=== PATIENT | female | born 1975 | race Caucasian/White ===

== ENCOUNTER 2016-11-07 12:42 | Emergency (ER) | payer OTHER ==
[2016-11-07 12:46] VITALS: TEMP 98; BMI 26.4
--- NOTE | 2016-11-07 13:36 | PDOC ---
History of Present Illness - General Chief Complaint: Vaginal Bleeding Stated Complaint: VAGINAL BLEEDING, 8 WKS Time Seen by Provider: 11/07/16 13:10 History Source: Patient Exam Limitations: No Limitations - History of Present Illness Travel History: No Initial Comments: 11/07/16 13:26 Patient is here with complaints of vaginal bleeding, noted last night some dark red blood on her underwear. Denies any clots, denies any gelatinous drainage but this dark red vaginal drainage has persistent. Has no cramping, nausea vomiting, , no recent gastrointestinal issues, no recent trauma or exercise change. Patient has had 6 pregnancies including this one, 3 live births, and 2 miscarriages 1- February of last year, second one in May of last year. Patient is uncertain as to cause, was never identified causesd of Misscarriage. Denies fever, nausea vomiting diarrhea or constipation. Denies any urology problems Timing/Duration: reports: getting worse Quality: reports: mild Abdominal Pain Onset Location: reports: suprapubic, generalized abdomen Activities at Onset: reports: none Aggravating Factors: improves with: None Alleviating Factors: improves with: None Past History - Travel Traveled outside of the country in the last 30 days: No Close contact w/someone who was outside of country & ill: No - Past Medical History Allergies/Adverse Reactions: Allergies Allergy/AdvReac Type Severity Reaction Status Date / Time No Known Allergies Allergy Verified 11/07/16 12:46 Home Medications: Ambulatory Orders NK [No Known Home Medication] 12/29/15 Asthma: No Cancer: No Cardiac Disorders: No Diabetes: No HTN: No Seizures: No Thyroid Disease: No - Reproductive History (#): 4 Para: 3 Spontaneous : 1 - Psycho/Social/Smoking Cessation Hx Anxiety: No Suicidal Ideation: No Smoking History: Never smoked Have you smoked in the past 12 months: No Information on smoking cessation initiated: No Hx Alcohol Use: No Drug/Substance Use Hx: No Substance Use Type: None Hx Substance Use Treatment: No Review of Systems - Review of Systems Able to Perform ROS?: No Is the patient limited Paraguayan proficient: No Constitutional: Yes: Symptoms Reported, See HPI. No: Fever, Malaise HEENTM: Yes: Symptoms Reported Respiratory: Yes: Symptoms reported, See HPI, Cough ABD/GI: Yes: Symptoms Reported, See HPI, Nausea : No: Symptoms Reported Integumentary: Yes: Symptoms Reported Neurological: Yes: Symptoms reported All Other Systems: Reviewed and Negative *Physical Exam - Vital Signs Last Vital Signs Temp Pulse Resp BP Pulse Ox 98 F 70 18 122/74 98 11/07/16 12:44 11/07/16 12:44 11/07/16 12:44 11/07/16 12:44 11/07/16 12:44 - Physical Exam General Appearance: Yes: Nourished, Appropriately Dressed, Apparent Distress, Mild Distress HEENT: positive: RIVKA, Normal ENT Inspection, TMs Normal, Pharynx Normal Neck: positive: Tender, Supple Respiratory/Chest: positive: Lungs Clear, Normal Breath Sounds Female Pelvic Exam: positive: normal external exam, cervical os closed (by manual exam- dark red blood noted in vault, minimalk amount ), discharge (dark blood ), vaginal bleeding Gastrointestinal/Abdominal: positive: Normal Bowel Sounds, Soft. negative: Distended, Guarding, Rebound, Tenderness Musculoskeletal: positive: Normal Inspection. negative: CVA Tenderness Extremity: positive: Normal Capillary Refill, Normal Inspection, Normal Range of Motion Integumentary: positive: Normal Color, Dry, Warm, Pale Neurologic: positive: patent examiner II-XII NML intact, Fully Oriented, Alert, Normal Mood/ Affect, Normal Response, Motor Strength 5/5 ED Treatment Course - LABORATORY CBC & Chemistry Diagram: 11/07/16 13:20 11/07/16 13:20 Progress Note - Progress Note Progress Note: , with dark vaginal bleeding. Previous miscarriages 2, will obtain labs, and ultrasound Medical Decision Making - Medical Decision Making 11/07/16 16:[address] King and reviewed ultrasound results. His concern was a low beta hCG (9700) and recommends return in 2 days for repeat ultrasound and laboratory testing. Patient updated to all of this plan and reports. States will return here in 2 days for same. Ultrasound was obtained to rule out ectopic as opposed to ovarian torsion . 11/07/16 17:42 *DC/Admit/Observation/Transfer Diagnosis at time of Disposition: Threatened in early - Discharge Dispostion Disposition: HOME Condition at time of disposition: Stable Admit: No - Referrals Referrals: Roberto Bautista MD [Staff Physician] - - Patient Instructions Printed Discharge Instructions: DI for Threatened Additional Instructions: Rest, drink lots of fluids: Teas, water, soups Kaylynn gwendolyn, carbonated beverages for the bubbles May try peppermint teas Avoid heavy , spicy or fatty foods until symptoms have resolved Avoid contact with others until fevers and symptoms resolved Lots of handwashing and good hygiene Tylenol for fever and pain Return to this emergency Department in 2 days for repeat ultrasound to rule out any adnexa fullness or ectopic , and have beta hCG repeated to evaluate for elevation or diminishing. Return immediately to emergency department for nausea, fevers, worsening abdominal pain or worsened bleeding. Followup with private physician / DIRECTOR OF BILLING/OB in one to 2 days to review Return to emergency department for worsened symptoms, fevers, dehydration - Post Discharge Activity Work/School Note: Back to Work
[2016-11-07 13:40] LABS: BASOPHIL 1.1 % (0-2.0); MCHC 34.6 g/dl (32.0-36.0); MEAN CELL VOLUME 92.3 fl (80-96); MEAN PLT VOLUME 7.4 fl (7.5-11.1); PLATELET COUNT 276 K/MM3 (134-434); RDW 12.9 % (11.6-15.6); WHITE BLOOD COUNT 6.2 K/mm3 (4.0-10.0)
[2016-11-07 13:51] LABS: ALBUMIN 3.8 g/dl (3.4-5.0)
[2016-11-07 14:12] LABS: ALK PHOS 82 U/L (45-117); ANION GAP 8 (8-16); BILIRUBIN,TOTAL 0.5 mg/dL (0.2-1.0); CALCIUM 8.8 mg/dL (8.5-10.1); CO2 25 mmol/L (21-32); COCKROFT - GAULT 144.5765; CREATININE 0.5 mg/dL (0.55-1.02); GLUCOSE,RANDOM 124 mg/dL (74-106); SGOT/AST 13 U/L (15-37); SGPT/ALT 20 U/L (12-78); TOT PROT 7.9 g/dl (6.4-8.2)
--- NOTE | 2016-11-07 14:13 | PDOC ---
[id number] 11/07/16 12:44 11/07/16 12:44 11/07/16 12:44 11/07/16 12:44 11/07/16 12:44 ED Treatment Course - LABORATORY CBC & Chemistry Diagram: 11/07/16 13:20 11/07/16 13:20 - ADDITIONAL ORDERS Additional order review: Laboratory Results 11/07/16 13:20 Sodium 139 Potassium 4.0 Chloride 106 BUN 8 Albumin 3.8 - RADIOLOGY Radiology Studies Ordered: Category Date Time Status TRANSVAGINAL US PREG [US] Stat Ultrasound 11/07/16 13:10 Ordered Medical Decision Making - Medical Decision Making 11/07/16 14:12 Patient seen and evaluated with the nurse practitioner. I agree with the overall evaluation, assessment, and management with the following summary of visit: 40-year-old female first trimester vaginal bleeding at suspected 8 weeks gestation. Check labs, hCG, Rh, ultrasound, urinalysis. *DC/Admit/Observation/Transfer Diagnosis at time of Disposition: Threatened in early - Discharge Dispostion Disposition: HOME Condition at time of disposition: Stable - Referrals Referrals: Roberto Bautista MD [Staff Physician] - - Patient Instructions Printed Discharge Instructions: DI for Threatened Additional Instructions: Rest, drink lots of fluids: Teas, water, soups Kaylynn gwendolyn, carbonated beverages for the bubbles May try peppermint teas Avoid heavy , spicy or fatty foods until symptoms have resolved Avoid contact with others until fevers and symptoms resolved Lots of handwashing and good hygiene Tylenol for fever and pain Return to this emergency Department in 2 days for repeat ultrasound to rule out any adnexa fullness or ectopic , and have beta hCG repeated to evaluate for elevation or diminishing. Return immediately to emergency department for nausea, fevers, worsening abdominal pain or worsened bleeding. Followup with private physician / CASINO CASHIER MANAGER/OB in one to 2 days to review Return to emergency department for worsened symptoms, fevers, dehydration - Post Discharge Activity Work/School Note: Back to Work
[2016-11-07 16:47] LABS: URINE APPEARANCE CLEAR; URINE BILIRUBIN NEGATIVE (NEGATIVE); URINE COLOR COLORLESS; URINE GLUCOSE (UA) NEGATIVE (NEGATIVE); URINE KETONE NEGATIVE (NEGATIVE); URINE LEUK ESTERASE NEGATIVE (NEGATIVE); URINE NITRITE NEGATIVE (NEGATIVE); URINE PROTEIN NEGATIVE (NEGATIVE); URINE UROBILINOGEN NEGATIVE E.U./dl (0.2-1.0)
[2016-11-07 16:54] LABS: URINE BLOOD 2+ (NEGATIVE)
[2016-11-07 16:56] LABS: URINE MUCUS RARE; URINE RBC <1 /hpf (0-3); URINE WBC 1 /hpf (3-5)
[2016-11-07 17:14] VITALS: BP 126/70; PULSE 86
== END 2016-11-07 17:16 | disposition home or self-care (01) ==
LOC: JER 12:42
DX: O20.0 Threatened abortion (principal); Z3A.08 8 weeks gestation of pregnancy
CPT/HCPCS: 36415; 76817-TC; 80053; 81003; 81015; 84702; 85025; 86850; 86900; 86901; 99282-25

== ENCOUNTER 2016-11-09 13:01 | Emergency (ER) | payer OTHER ==
[2016-11-09 13:17] VITALS: BP 116/76; PULSE 67; TEMP 98.4; BMI 26.4
--- NOTE | 2016-11-09 13:24 | PDOC ---
History of Present Illness - General Chief Complaint: Revisit, Lab Variance Stated Complaint: REVISIT/ BETA HCG Time Seen by Provider: 11/09/16 13:18 History Source: Patient Exam Limitations: No Limitations - History of Present Illness Initial Comments: 11/09/16 13:19 Patient was seen by myself 2 days ago in the emergency department for a missed AB. Beta hCG numbers were low and patient instructed to come to this emergency department for repeat labs and ultrasound. Today had a large amount of bleeding with some clots noted, went through for to 5 large pads. States much less today but has some small amount of dark bleeding noted. Denies fever, denies any nausea vomiting diarrhea or constipation. Denies any dysuria. 11/09/16 13:26 Severity: mild Associated Symptoms: reports: denies symptoms Past History - Travel Traveled outside of the country in the last 30 days: No Close contact w/someone who was outside of country & ill: No - Past Medical History Allergies/Adverse Reactions: Allergies Allergy/AdvReac Type Severity Reaction Status Date / Time No Known Allergies Allergy Verified 11/07/16 12:46 Home Medications: Ambulatory Orders NK [No Known Home Medication] 12/29/15 Asthma: No Cancer: No Cardiac Disorders: No Diabetes: No HTN: No Seizures: No Thyroid Disease: No Other medical history: denies - Reproductive History (#): 4 Para: 3 Spontaneous : 1 - Psycho/Social/Smoking Cessation Hx Anxiety: No Suicidal Ideation: No Smoking History: Never smoked Have you smoked in the past 12 months: No Information on smoking cessation initiated: No Hx Alcohol Use: No Drug/Substance Use Hx: No Substance Use Type: None Hx Substance Use Treatment: No Review of Systems - Review of Systems Able to Perform ROS?: Yes Is the patient limited Amharic proficient: Yes Constitutional: Yes: See HPI, Fever. No: Symptoms Reported, Malaise HEENTM: No: Symptoms Reported Respiratory: Yes: Symptoms reported, See HPI Cardiac (ROS): No: Symptoms Reported ABD/GI: Yes: Symptoms Reported, Abdominal cramping (mild suprapubic), Other ( has minimal vaginal bleeding today) : Yes: See HPI. No: Symptoms Reported, Burning Musculoskeletal: No: Symptoms Reported Integumentary: Yes: See HPI. No: Symptoms Reported Neurological: No: Symptoms reported All Other Systems: Reviewed and Negative *Physical Exam - Vital Signs Last Vital Signs Temp Pulse Resp BP Pulse Ox 98.4 F 67 18 116/76 100 11/09/16 13:09 11/09/16 13:09 11/09/16 13:09 11/09/16 13:09 11/09/16 13:09 - Physical Exam General Appearance: Yes: Nourished, Appropriately Dressed, Apparent Distress, Mild Distress HEENT: positive: RIVKA, Normal ENT Inspection, TMs Normal, Pharynx Normal Neck: positive: Supple. negative: Tender Respiratory/Chest: positive: Lungs Clear Gastrointestinal/Abdominal: positive: Soft, Other (no rebound or guarding ). negative: Normal Bowel Sounds, Distended, Guarding Extremity: positive: Normal Capillary Refill, Normal Inspection, Normal Range of Motion Integumentary: positive: Normal Color, Warm, Pale Neurologic: positive: campus administrative assistant II-XII NML intact, Fully Oriented, Alert, Normal Mood/ Affect, Normal Response, Motor Strength 5/5 Medical Decision Making - Medical Decision Making 11/09/16 13:37 Patient return to this emergency department for repeat beta hCG and repeat ultrasound to rule in or out intrauterine . 11/09/16 18:18 11/09/16 18:27 Discuss case and results of ultrasound with Dr. Weaver, cushion cover inspector for [employer]. He reports that patient may be cleared for return in 2 days as beta hCG has dropped significantly and ultrasound reveals no gestational sac but fragments of past . Patient is stable, and will follow-up with Dr. Bautista next week. *DC/Admit/Observation/Transfer Diagnosis at time of Disposition: Spontaneous miscarriage - Discharge Dispostion Disposition: HOME Condition at time of disposition: Stable Admit: No - Referrals Referrals: Roberto Bautista MD [Staff Physician] - - Patient Instructions Printed Discharge Instructions: DI for Miscarriage Additional Instructions: Rest, drink lots of fluids, avoid strenuous activity or heavy lifting until feels well Follow-up with TRADE MARK EXAMINER for clearance and reevaluation in one week - Post Discharge Activity Work/School Note: Back to Work
[2016-11-09] MEDS ORDERED: NAPROXEN 500 MG TABLET (FP) ONE (14:06)
== END 2016-11-09 18:28 | disposition home or self-care (01) ==
LOC: JERFT 13:01
DX: O02.1 Missed abortion (principal)
CPT/HCPCS: 36415; 76801-TC; 84702; 99281-25

== ENCOUNTER 2017-08-14 17:04 | Emergency (ER) | payer SELFPAY ==
[2017-08-14 17:31] VITALS: BP 121/72; PULSE 79; TEMP 99.1; BMI 25.4
--- NOTE | 2017-08-14 17:49 | PDOC ---
Rapid Medical Evaluation Chief Complaint: Vaginal Bleeding Time Seen by Provider: 08/14/17 17:46 Medical Evaluation: Allergies Allergy/AdvReac Type Severity Reaction Status Date / Time No Known Allergies Allergy Verified 08/14/17 17:27 Vital Signs Temp Pulse Resp BP Pulse Ox 99.1 F 79 16 121/72 100 08/14/17 17:28 08/14/17 17:28 08/14/17 17:28 08/14/17 17:28 08/14/17 17:28 08/14/17 17:47 The patient presents with a chief complaint of: [Vaginal bleeding, 2 months . ] I have performed a brief in-person evaluation of this patient. Pertinent physical exam findings: vss, [Lungs are clear, RRR, vaginal deferred until seen by provider in ED. ] I have ordered the following: [Labs, Urine, Beta, type and screen, transvaginal US. ] The patient will proceed to the ED for further evaluation. Discharge Disposition - Diagnosis Threatened in early - Discharge Dispostion Last Admission D/C Date: 11/07/11 - Referrals - Patient Instructions - Post Discharge Activity
[2017-08-14 18:12] LABS: BASO % 0.7 % (0-2.0); EOS % 0.7 % (0-4.5); HEMATOCRIT 39.4 % (32.4-45.2); HEMOGLOBIN 13.2 GM/dL (10.7-15.3); LYMPH % 30.3 % (8-40); MCHC 33.4 g/dl (32.0-36.0); MEAN CELL VOLUME 86.7 fl (80-96); MEAN PLT VOLUME 8.3 fl (7.5-11.1); MONO % 7.3 % (3.8-10.2); PLATELET COUNT 276 K/MM3 (134-434); RBC 4.55 M/mm3 (3.60-5.2); RDW 14.1 % (11.6-15.6); WHITE BLOOD COUNT 6.7 K/mm3 (4.0-10.0)
[2017-08-14 18:15] LABS: URINE APPEARANCE CLEAR; URINE BILIRUBIN NEGATIVE (NEGATIVE); URINE BLOOD 2+ (NEGATIVE); URINE COLOR STRAW; URINE GLUCOSE (UA) 3+ (NEGATIVE); URINE KETONE TRACE (NEGATIVE); URINE LEUK ESTERASE NEGATIVE (NEGATIVE); URINE NITRITE NEGATIVE (NEGATIVE); URINE PROTEIN NEGATIVE (NEGATIVE); URINE UROBILINOGEN NEGATIVE mg/dL (0.2-1.0)
[2017-08-14 18:16] LABS: EPI CELLS RARE /HPF (FEW)
[2017-08-14 18:34] LABS: ALBUMIN 3.4 g/dl (3.4-5.0); ALK PHOS 102 U/L (45-117); ANION GAP 7 (8-16); BILIRUBIN,TOTAL 0.2 mg/dL (0.2-1.0); BLOOD UREA NITROGEN 11 mg/dL (7-18); CALCIUM 8.6 mg/dL (8.5-10.1); CHLORIDE 103 mmol/L (98-107); CO2 26 mmol/L (21-32); CREATININE 0.7 mg/dL (0.55-1.02); GLUCOSE,RANDOM 282 mg/dL (74-106); POTASSIUM 4.2 mmol/L (3.5-5.1); SGOT/AST 12 U/L (15-37); SGPT/ALT 21 U/L (12-78); SODIUM 136 mmol/L (136-145); TOT PROT 7.5 g/dl (6.4-8.2)
[2017-08-14 18:45] LABS: INR 0.97 (0.82-1.09)
--- NOTE | 2017-08-14 20:38 | PDOC ---
History of Present Illness - General Chief Complaint: Vaginal Bleeding Stated Complaint: VAGINAL BLEEDING (4WKS ) Time Seen by Provider: 08/14/17 17:46 Past History - Past Medical History Allergies/Adverse Reactions: Allergies Allergy/AdvReac Type Severity Reaction Status Date / Time No Known Allergies Allergy Verified 08/14/17 17:27 Home Medications: Ambulatory Orders NK [No Known Home Medication] 12/29/15 Asthma: No Cancer: No Cardiac Disorders: No COPD: No Diabetes: No HTN: No Seizures: No Thyroid Disease: No - Reproductive History (#): 4 Para: 3 Spontaneous : 1 - Suicide/Smoking/Psychosocial Hx Smoking History: Never smoked Have you smoked in the past 12 months: No Information on smoking cessation initiated: No Hx Alcohol Use: No Drug/Substance Use Hx: No Substance Use Type: None Hx Substance Use Treatment: No Review of Systems - Review of Systems Able to Perform ROS?: Yes Is the patient limited Kinyarwanda proficient: No Constitutional: No: Symptoms Reported, See HPI, Chills, Diaphoresis, Fever, Loss of Appetite, Malaise, Night Sweats, Weakness, Weight Stable, Unintentional Wgt. Loss, Unexplained wgt Loss, Other HEENTM: No: Symptoms Reported, See HPI, Eye Pain, Blurred Vision, Tearing, Recent change in vision, Double Vision, Cataracts, Ear Pain, Ocular Prothesis, Ear Discharge, Nose Pain, Nose Congestion, Tinnitus, Nose Bleeding, Hearing Loss , Throat Pain, Throat Swelling, Mouth Pain, Dental Problems, Difficulty Swallowing, Mouth Swelling, Other Respiratory: No: Symptoms reported, See HPI, Cough, Orthopnea, Shortness of Breath, SOB with Exertion, SOB at Rest, Stridor, Wheezing, Productive cough, Hemoptysis, Other Cardiac (ROS): No: Symptoms Reported, See HPI, Chest Pain, Edema, Irregular Heart Rate, Lightheadedness, Palpitations, Syncope, Chest Tightness, Other : Yes: Other (vaginal bleeding scant) Musculoskeletal: No: Symptoms Reported, See HPI, Back Pain, Gout, Joint Pain, Joint Swelling, Muscle Pain, Muscle Weakness, Neck Pain, Joint Stiffness, Other Integumentary: No: Symptoms Reported, See HPI, Bruising, Change in Color, Change in Hair/Nails, Dryness, Erythema, Flushing, Lesions, Lumps, Pallor, Pruritus, Rash, Sweating, Other Neurological: No: Symptoms reported, See HPI, Headache, Numbness, Paresthesia, Pre-Existing Deficit, Seizure, Tingling, Tremors, Weakness, Unsteady Gait, Ataxia, Dizziness, Other Endocrine: No: Symptoms Reported, See HPI, Excessive Sweating, Flushing, Intolerance to Cold, Intolerance to Heat, Increased Hunger, Increased Thirst, Increased Urine, Unexplained Weight Gain, Unexplained Weight Loss, Change in Weight, Other Hematologic/Lymphatic: No: Symptoms Reported, See HPI, Anemia, Blood Clots, Easy Bleeding, Easy Bruising, Bleeding Diathesis, Lymph Node Abnormalities, Swollen Glands, Other *Physical Exam - Vital Signs Last Vital Signs Temp Pulse Resp BP Pulse Ox 99.1 F 79 16 121/72 100 08/14/17 17:28 08/14/17 17:28 08/14/17 17:28 08/14/17 17:28 08/14/17 17:28 - Physical Exam General Appearance: Yes: Nourished HEENT: positive: Normal Voice Neck: positive: Supple Respiratory/Chest: positive: Lungs Clear, Normal Breath Sounds Cardiovascular: positive: Regular Rate Female Pelvic Exam: positive: vaginal bleeding Gastrointestinal/Abdominal: positive: Normal Bowel Sounds, Soft Musculoskeletal: positive: Normal Inspection Extremity: positive: Normal Inspection, Normal Range of Motion Integumentary: positive: Normal Color, Warm Neurologic: positive: Fully Oriented, Alert, Motor Strength 5/5 ED Treatment Course - LABORATORY CBC & Chemistry Diagram: 08/14/17 18:00 08/14/17 18:00 - ADDITIONAL ORDERS Additional order review: Laboratory Results 08/14/17 08/14/17 08/14/17 18:00 18:00 18:00 PT with INR 11.00 INR 0.97 Sodium 136 Potassium 4.2 Chloride 103 Carbon Dioxide 26 Anion Gap 7 L BUN 11 Creatinine 0.7 Creat Clearance w eGFR > 60 Random Glucose 282 H Calcium 8.6 Total Bilirubin 0.2 D AST 12 L ALT 21 Alkaline Phosphatase 102 Total Protein 7.5 Albumin 3.4 Urine Color Urine Appearance Urine pH Ur Specific [place] Urine Protein Urine Glucose (UA) Urine Ketones Urine Blood Urine Nitrite Urine Bilirubin Urine Urobilinogen Ur Leukocyte Esterase Urine WBC (Auto) Urine RBC (Auto) Ur Epithelial Cells Blood Type O POSITIVE Antibody Screen Negative 08/14/17 17:50 PT with INR INR Sodium Potassium Chloride Carbon Dioxide Anion Gap BUN Creatinine Creat Clearance w eGFR Random Glucose Calcium Total Bilirubin AST ALT Alkaline Phosphatase Total Protein Albumin Urine Color Straw Urine Appearance Clear Urine pH 7.0 Ur Specific [place] 1.032 Urine Protein Negative Urine Glucose (UA) 3+ H Urine Ketones Trace H Urine Blood 2+ H Urine Nitrite Negative Urine Bilirubin Negative Urine Urobilinogen Negative Ur Leukocyte Esterase Negative Urine WBC (Auto) 3 Urine RBC (Auto) 9 Ur Epithelial Cells Rare Blood Type Antibody Screen 08/14/17 18:00 RBC 4.55 MCV 86.7 MCHC 33.4 RDW 14.1 MPV 8.3 D Neutrophils % 61.0 Lymphocytes % 30.3 Monocytes % 7.3 Eosinophils % 0.7 Basophils % 0.7 Medical Decision Making - Medical Decision Making 08/14/17 23:03 pelvic IMP theratened ab US SL IUP 6 weeks FHT 127 *DC/Admit/Observation/Transfer Diagnosis at time of Disposition: Threatened in early - Discharge Dispostion Disposition: HOME Condition at time of disposition: Stable - Referrals - Patient Instructions Printed Discharge Instructions: DI for Threatened Additional Instructions: please followup with your ui developer with [employer] - Post Discharge Activity
== END 2017-08-14 23:09 | disposition home or self-care (01) ==
LOC: JER 17:04
DX: O26.891 Other specified pregnancy related conditions, first trimester (principal); O20.0 Threatened abortion; Z3A.01 Less than 8 weeks gestation of pregnancy
CPT/HCPCS: 36415; 76817-TC; 80053; 81003; 81015; 84702; 85025; 85610; 86850; 86900; 86901; 87086; 87186; 99282-25

== ENCOUNTER 2019-09-11 01:18 | Emergency (ER) | payer OTHER ==
[2019-09-11 01:40] VITALS: BMI 26.7
--- NOTE | 2019-09-11 01:51 | PDOC ---
*Physical Exam - Vital Signs Last Vital Signs Temp Pulse Resp BP Pulse Ox 99.3 F 87 18 165/87 100 09/11/19 01:31 09/11/19 01:31 09/11/19 01:31 09/11/19 01:31 09/11/19 01:31 Medical Decision Making - Medical Decision Making 09/11/19 01:51 Patient seen by the advanced practice provider under my supervision. Ancillary testing reviewed as necessary. I agree with plan as outlined by the advanced practice provider. Discharge - Discharge Information Problems reviewed: Yes Clinical Impression/Diagnosis: Throat pain - Follow up/Referral - Patient Discharge Instructions Patient Printed Discharge Instructions: Sore Throat Additional Instructions: Drink plenty of fluids Gargle with warm salty water Drink warm liquids Take ibuprofen every 6 hours as needed for pain or fever follow up with your doctor as soon as possible. - Post Discharge Activity
--- NOTE | 2019-09-11 02:14 | PDOC ---
History of Present Illness - General Chief Complaint: Sore Throat Stated Complaint: HEADACHE,SORE THROAT Time Seen by Provider: 09/11/19 01:50 History Source: Patient - History of Present Illness Initial Comments: 09/11/19 02:06 43 year old female sore throat and headache since yesterday afternoon. denies fever, NVD, chest pain. denies taking any medication for pain. Past History - Past Medical History Allergies/Adverse Reactions: Allergies Allergy/AdvReac Type Severity Reaction Status Date / Time No Known Allergies Allergy Verified 09/16/17 12:59 Home Medications: Ambulatory Orders Ferrous Sulfate [Iron] 325 mg PO DAILY 09/16/17 Asthma: No Cancer: No Cardiac Disorders: No COPD: No Diabetes: No HTN: No Seizures: No Thyroid Disease: No - Reproductive History (#): 4 Para: 3 Therapeutic (s) & number: Yes Spontaneous : 1 - Psycho Social/Smoking Cessation Hx Smoking History: Never smoked Have you smoked in the past 12 months: No Hx Alcohol Use: No Drug/Substance Use Hx: No Substance Use Type: None Hx Substance Use Treatment: No Review of Systems - Review of Systems Able to Perform ROS?: Yes Is the patient limited Cambodian proficient: No HEENTM: Yes: Throat Pain *Physical Exam - Vital Signs Last Vital Signs Temp Pulse Resp BP Pulse Ox 99.3 F 87 18 165/87 100 09/11/19 01:31 09/11/19 01:31 09/11/19 01:31 09/11/19 01:31 09/11/19 01:31 - Physical Exam General Appearance: Yes: Appropriately Dressed HEENT: positive: Normal ENT Inspection. negative: Pharyngeal Erythema, Tonsillar Exudate, Tonsillar Erythema, Nasal Congestion Respiratory/Chest: positive: Lungs Clear, Normal Breath Sounds Cardiovascular: positive: Regular Rhythm, Regular Rate Integumentary: positive: Normal Color, Warm Neurologic: positive: Fully Oriented, Alert, Normal Mood/Affect Medical Decision Making - Medical Decision Making Throat pain P: ibuprofen Discharge - Discharge Information Problems reviewed: Yes Clinical Impression/Diagnosis: Throat pain Condition: Stable Disposition: HOME - Follow up/Referral - Patient Discharge Instructions Patient Printed Discharge Instructions: Sore Throat Additional Instructions: Drink plenty of fluids Gargle with warm salty water Drink warm liquids Take ibuprofen every 6 hours as needed for pain or fever follow up with your doctor as soon as possible. - Post Discharge Activity
[2019-09-11] MEDS ORDERED: IBUPROFEN 600 MG TABLET (FP) PO ONE ×2 (03:17→03:22)
[2019-09-11 05:39] VITALS: BP 150/97; PULSE 66; TEMP 98
== END 2019-09-11 04:00 | disposition home or self-care (01) ==
LOC: JER 01:18
DX: R07.0 Pain in throat (principal)
CPT/HCPCS: 99282-25

== ENCOUNTER 2019-09-18 16:45 | Inpatient (IN) | payer OTHER ==
[2019-09-18] MEDS ORDERED: ELECTROLYTE-148 SOLN 1,000 ML IV SCH (17:30)
--- NOTE | 2019-09-18 17:34 | HP ---
Past Medical History - Admission Chief Complaint: Abdominal Pain History of Present Illness: 43yo @ 39.4wks by kyrie, ZEKE 09/21/2019, here with abdominal pain. +ctx since 1PM yesterday. No VB/LOF. +FM Preg c/b: Type II Diabetes (HgbA1c 10.9 at NOB visit, last HbgA1c 9.0 in February 2019) NO care since April 2019 (dismissed from [facility]/25 profound non compliance with her type II diabetes management). Has not seen a physician since Apr 2019. Not taking medications at present. Last ultrasound was also with MALLIKA= Robyn on May 14 2019. Her care was transferred to [facility] and she presented for one intake visit on July 15, 2019 which was just an intake visit. She decided not to follow up for her MD visit on Jul 31, 2019 and did not show up to any rescheduled appointments. She reports she is not taking any medication for her diabetes at present, nor checking her FS at all. 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: Alzheimer's, CVA, Dementia, Migraine, Multiple Sclerosis, Peripheral Neuropathy, Parkinson's, Seizure, Syncope, TIA, Vertigo, Other Cardiovascular: No: AFIB, Aneurysm, Aortic Insufficiency, Aortic Stenosis, CAD, CHF, Deep Vein Thrombosis, HTN, Hyperlipdemia, [place], Mitral Insufficiency, Mitral Stenosis, Murmur, Pulmonary Hypertension, Other Pulmonary: No: Asthma, Bronchitis, Cancer, COPD, O2 Dependent, Pneumonia, Previously Intubated, Pulmonary Embolus, Pulmonary Fibrosis, Sleep Apnea, Other Gastrointestinal: No: Ascites, Cancer, Constipation, Crohn's Disease, Diverticulitis, Diverticulosis, Esophageal Varices, Gastritis, GERD, GI Bleed, Hemorrhoids, Hiatal Hernia, Inflamatory Bowel Disease, Irritable Bowel Disease, Pancreatitis, Peptic Ulcer Disease, Ulcerative Colitis, Other Hepatobiliary: No: Cirrhosis, Cholelithiasis, Cholecystitis, Choledocholithiasis , Hepatitis A, Hepatitis B, Hepatitis C, Other Renal/: No: Renal Failure, Renal Inusuff, BPH, Cancer, Hematuria, Hemodialysis , Neurogenic Bladder, Renal Calculi, UTI, Other Reproductive: No: Ectopic , Endometriosis, Fibroids, PID, Polycystic Ovary Syndrome, Postmenopausal, Other ...: 7 ...Para: 3 ...Term: 3 ...: 0 ...Spon : 3 ... Weeks Gestation by Dates: 39.4 ...EDC by Sono: 09/21/19 Infectious Disease: No: AIDS, C-Diff, Herpes Zoster, HIV, MRSA, STD's, Tuberculosis, VREF, Other Psych: No: Addictions, Anxiety, Bipolar, Depression, Panic, Psychosis, Schizophrenia, Other Musculoskeletal: No: Bursitis, Chronic low back pain, Hemiparesis, Hemiplegia, Osteoarthritis, Paraplegia, Other Rheumatology: No: Fibromyalgia, Gout, Lupus, Rheumatoid Arthritis, Sarcoidosis, Vasculitis, Other ENT: No: Allergic Rhinitis, Sinusitis, Other Endocrine: Yes: Diabetes Mellitus - Past Surgical History Past Surgical History: Yes: None Hx Myomectomy: No Hx Transabdominal Cerclage: No - Smoking History Smoking history: Never smoked Have you smoked in the past 12 months: No - Alcohol/Substance Use Hx Alcohol Use: No History of Substance Use: reports: None - Social History Usual Living Arrangement: Yes: With Spouse Do you think of yourself as: Straight/Heterosexual ADL: Independent History of Recent Travel: No Home Medications - Allergies Allergies/Adverse Reactions: Allergies Allergy/AdvReac Type Severity Reaction Status Date / Time No Known Allergies Allergy Verified 09/16/17 12:59 - Home Medications Home Medications: Ambulatory Orders Ferrous Sulfate [Iron] 325 mg PO DAILY 09/16/17 Review of Systems - Review of Systems Constitutional: denies: No Symptoms, Chills, Diaphoresis, Fever, Lethargy, Loss of Appetite, Malaise, Night Sweats, Unintentional Wgt. Loss, Weakness, Other Eyes: denies: No Symptoms, Blind Spots, Blurred Vision, Double Vision, Eye Pain , Floaters, Photophobia, Recent Change in Vision, Other Cardiovascular: denies: No Symptoms, Chest Pain, Edema, Palpitations, Shortness of Breath, Other Respiratory: denies: No Symptoms, Cough, Exercise Intolerance, Hemoptysis, Orthopnea, PND, Snoring, SOB, SOB on Exertion, Wheezing, Other Physical Exam - Maternity Constitutional: Yes: Well Nourished, No Distress, Calm Eyes: Yes: WNL, Conjunctiva Clear, EOM Intact HENT: Yes: WNL, Atraumatic, Normocephalic Neck: Yes: WNL, Supple, Trachea Midline Cardiovascular: Yes: WNL, Regular Rate and Rhythm Breast(s): Yes: WNL - Abdominal Exam/OB Number of Fetuses: Single Presentation: Vertex Contractions: Yes Regularity: Irregular Intensity: Mild/Mod Monitor Mode: External Heart Rate Location: [facility] Category: I Accelerations: Non-Uniform Decelerations: None - Vaginal Exam/OB Vaginal Bleediing: No Speculum Exam: No Dilatation (cm): 4-5 Effacement (%): 50 Amniotic Membrane Status: Intact Presentation: Vertex/Position Station: -3 - Physical Exam Edema: No Imaging - Results Ultrasound: Report Reviewed Problem List - Problems (1) 39 weeks gestation of Problems reviewed: Yes Code(s): Z3A.39 - 39 WEEKS GESTATION OF (2) Type II diabetes mellitus Problems reviewed: Yes Code(s): E11.9 - TYPE 2 DIABETES MELLITUS WITHOUT COMPLICATIONS Assessment/Plan 43yo @ 39.4wks by sono here with uterine contractions, labor Admit to L&D Mildly elevated blood pressures, will order PIH labs Admission labs, PIH labs, HgbA1c, Urine Drug Screen Amp for GBS unknown Pitocin/AROM augmentation prn Epidural prn FS q2 hours, SSI. Will need Endo consult PP to give guidance on home regimen for glycemic control Anticipate JACK Silva MD
[2019-09-18] MEDS ORDERED: SODIUM CHLORIDE 100 ML IVPB ONE (17:40)
[2019-09-18] MEDS ORDERED: AMPICILLIN SODIUM 2 GM VIAL ONE (17:40)
[2019-09-18] MEDS ORDERED: AMPICILLIN - 2 GM in SODIUM CHLORIDE 100 ML IVPB ONE (18:05)
[2019-09-18] MEDS ORDERED: OXYTOCIN 30 UNITS in 0.9% NS 30 UNIT/500 ML INFUS.BAG IVPB SCH (18:15)
[2019-09-18 18:49] VITALS: BMI 28.0
[2019-09-18 19:10] LABS: BASO % 0.5 % (0-2.0); EOS % 0.1 % (0-4.5); HEMATOCRIT 37.8 % (32.4-45.2); HEMOGLOBIN 12.9 GM/dL (10.7-15.3); LYMPH % 17.7 % (8-40); MCHC 34.1 g/dl (32.0-36.0); MEAN CELL VOLUME 93.8 fl (80-96); MONO % 6.7 % (3.8-10.2); PLATELET COUNT 175 K/MM3 (134-434); RBC 4.03 M/mm3 (3.60-5.2); RDW 13.4 % (11.6-15.6); WHITE BLOOD COUNT 7.5 K/mm3 (4.0-10.0)
[2019-09-18 19:32] LABS: URIC ACID 3.8 mg/dL (2.6-7.2)
[2019-09-18 19:36] LABS: ALBUMIN 2.5 g/dl (3.4-5.0); BILIRUBIN,TOTAL 0.3 mg/dL (0.2-1); BLOOD UREA NITROGEN 5.4 mg/dL (7-18); CREATININE 0.4 mg/dL (0.55-1.3); POTASSIUM 3.8 mmol/L (3.5-5.1); TOT PROT 6.7 g/dl (6.4-8.2)
[2019-09-18 19:46] LABS: INR 0.91 (0.83-1.09); PROTHROMBIN TIME (PATIENT) 10.7 SEC (9.7-13.0)
--- NOTE | 2019-09-18 20:06 | PN ---
Progress Note, Labor Vaginal Exam #2 Labor Exam Date: 09/18/19 Labor Exam Time: 20:05 Heart Rate (range): Cat I Dilatation: 7 Effacement (%): 100 Amniotic Membrane Status: Ruptured Presentation: Vertex/Position Station: -3 Remarks: Pt more uncomfortable, requesting pain medicine Now 7cm, active Epidural prn Anticipate Cally Silva MD
--- NOTE | 2019-09-18 20:37 | PN ---
Progress Note, Labor Vaginal Exam #2 Labor Exam Date: 09/18/19 Labor Exam Time: 20:37 Heart Rate (range): Cat I Dilatation: 9 Effacement (%): 100 Amniotic Membrane Status: Intact Station: 0 Remarks: Pt uncomfortable, requesting epidural Now 9cm Anticipate soon Cally Silva MD
[2019-09-18] MEDS ORDERED: OXYTOCIN 20 UNITS in 0.9% NS 20 UNIT/1,000 ML INFUS.BAG IV ONE ×2 (20:59→23:30)
--- NOTE | 2019-09-18 21:40 | LDN ---
Shoulder Dystocia Delivery Time Head Delivered: 19:18 Time Body Delivered: 19:21 - Initial Traction Gentle attempt at traction, assisted by maternal expulsive forces - Maneuvers utilized in order and by whom Maneuver 1: Episiotomy Maneuver 2: Anel Maneuver 3: Wood's Maneuver Maneuver 4: Posterior Arm Release The arm under the symphysis at the point of the head was: Right Maneuvers: Kincaid's Maneuver - 30 degree oblique rotation of the anterior shoulder with the spine oriented anteriorly Wood's Maneuver - reduce anterior shoulder fro posterior aspect pushing in direction face is looking
--- NOTE | 2019-09-18 21:50 | PN ---
Delivery - Delivery Vaginal Delivery: Shoulder/Difficult Type of Anesthesia: Local Episiotomy/Laceration: Right Mediolateral EBL (cc): 250 Delivery, Single - Stages of Labor Placenta: Yes: Spontaneous - Condition of Assistant Product Manager/Overnight Associate Present: Yes Infant Gender: Female Position: Left, OA - Feeding Plan Initial Plan: Exclusive throughout hospitalization Remarks - Remarks Remarks: Patient fully dilated, but pushing ineffectively despite coaching. NICU present given Type II Diabetes without any control of care for over 3 months. When amenable to direction, able to push to 3+ station with stalled effort. Lidocaine injected, right mediolateral episiotomy done to allow for ease of delivery of head. Patient continued to push with delivery of head in DM position, no nuchal. No spontaneous delivery of anterior shoulder and shoulder dystocia promptly recognized. Patient advised to stop pushing to allow for maneuvers. McRobert's done, patient instructed to push with no resolution of the dystocia. Wood's maneuver them attempted and infant rotated to GARRET with maternal expuslive efforts, but no resolution of dystocia. rotated to DM again, posterior shoulder identified, wrist grabbed and arm delivered. Anterior shoulder released, remaining body delivered. Cord clamped and cut immediately. handed off to awaiting NICU staff. Weight pending. Apgars 7 , 9. Cord gasses collected. Spontaneous delivery of intact placenta with 3VC. Fundus firm. Perineum inspected, only notable for known episiotomy. Right mediolateral episiotomy repaired with 3-0 vicryl. Hemostasis noted. EBL 250ml. Delivery and shoulder dystocia discussed with patient and her in Maldivian. Discussed known risk of shoulder dystocia with Diabetes in , especially when uncontrolled. All questions answered, parents expressed understanding of events. Reiterated need for care for her diabetes going forward , in addition to effective contraception. Dorothy Silva MD
[2019-09-18] MEDS ORDERED: METHYLERGONOVINE MALEATE 0.2 MG/1 ML AMP IM PRN (21:51)
[2019-09-18] MEDS ORDERED: BISACODYL 10 MG SUPP.RECT RC PRN (21:51)
[2019-09-18] MEDS ORDERED: IBUPROFEN 600 MG TABLET (FP) PO PRN (21:51)
[2019-09-18] MEDS ORDERED: BENZOCAINE 28 GM HEMORRHOIDAL OINTMENT TP PRN (21:51)
[2019-09-18] MEDS ORDERED: BENZOCAINE 20% 57 GM BOTTLE TP PRN (21:51)
[2019-09-18] MEDS ORDERED: WITCH HAZEL 50% (TUCKS) 40 PAD/JAR PAD TP PRN (21:51)
[2019-09-18] MEDS ORDERED: ACETAMINOPHEN 325 MG TABLET (FP) PO PRN (21:51)
[2019-09-18] MEDS ORDERED: AMPICILLIN - 1 GM in SODIUM CHLORIDE 100 ML IVPB SCH (22:00)
[2019-09-19] MEDS ORDERED: KETOROLAC TROMETHAMINE 30 MG/1 ML VIAL IVPUSH ONE (00:11)
[2019-09-19] MEDS: OXYTOCIN 20 UNITS in 0.9% NS 20 UNIT/1,000 ML INFUS.BAG IV SCH ×2 (01:42→09:00)
[2019-09-19] MEDS ORDERED: LABETALOL HCL 200 MG TABLET (FP) ONE (07:36)
--- NOTE | 2019-09-19 07:37 | PN ---
Post Progress Note - Subjective Subjective: Pain controlled. Lochia less than menses. No WHALEN, no N/V. No RUQ pain. SBPs elevated overnight, but no symptoms. Pain improved Type of Delivery: Vital Signs: Vital Signs Temperature 98.6 F 09/19/19 06:00 Pulse Rate 75 09/19/19 07:00 Respiratory Rate 20 09/19/19 07:00 Blood Pressure 144/77 09/19/19 07:00 O2 Sat by Pulse Oximetry (%) 99 09/19/19 00:00 Uterus: Yes: Fundus Firm Abdomen/GI: Yes: Abdomen soft, Tolerating PO Lochia: Yes: Rubra Lochia, amount: Small Extremities: Yes: Calves non-tender Perineum: Yes: Episiotomy Activity: Ambulating - Labs Labs: CBC WBC 7.5 K/mm3 (4.0-10.0) 09/18/19 18:45 RBC 4.03 M/mm3 (3.60-5.2) 09/18/19 18:45 Hgb 12.9 GM/dL (10.7-15.3) 09/18/19 18:45 Hct 37.8 % (32.4-45.2) 09/18/19 18:45 MCV 93.8 fl (80-96) 09/18/19 18:45 MCH 32.0 pg (25.7-33.7) D 09/18/19 18:45 MCHC 34.1 g/dl (32.0-36.0) 09/18/19 18:45 RDW 13.4 % (11.6-15.6) 09/18/19 18:45 Plt Count 175 K/MM3 (134-434) D 09/18/19 18:45 MPV 9.0 fl (7.5-11.1) D 09/18/19 18:45 Absolute Neuts (auto) 5.6 K/mm3 (1.5-8.0) 09/18/19 18:45 Neutrophils % 75.0 % (42.8-82.8) D 09/18/19 18:45 Lymphocytes % 17.7 % (8-40) D 09/18/19 18:45 Monocytes % 6.7 % (3.8-10.2) 09/18/19 18:45 Eosinophils % 0.1 % (0-4.5) D 09/18/19 18:45 Basophils % 0.5 % (0-2.0) 09/18/19 18:45 Nucleated RBC % 0 % (0-0) 09/18/19 18:45 Problem List - Problems (1) 39 weeks gestation of Code(s): Z3A.39 - 39 WEEKS GESTATION OF (2) Type II diabetes mellitus Code(s): E11.9 - TYPE 2 DIABETES MELLITUS WITHOUT COMPLICATIONS Assessment/Plan 43yo s/p c/b shoulder dystocia, PPD#1 Elevated BPs, will give Lab 200 BIG Routine PP care Labs pending Endo consult for glycemic control Anticipate d/c to home PPD#2 Cally Silva MD
[2019-09-19] MEDS: LABETALOL HCL 200 MG TABLET (FP) PO SCH ×3 (07:41→22:15)
[2019-09-19 08:24] LABS: BASO % 0.4 % (0-2.0); HEMATOCRIT 32.2 % (32.4-45.2); HEMOGLOBIN 11.1 GM/dL (10.7-15.3); LYMPH % 11.3 % (8-40); MCH 32.3 pg (25.7-33.7); MCHC 34.5 g/dl (32.0-36.0); MEAN CELL VOLUME 93.7 fl (80-96); MEAN PLT VOLUME 8.8 fl (7.5-11.1); MONO % 7.1 % (3.8-10.2); NEUT % 81.2 % (42.8-82.8); PLATELET COUNT 148 K/MM3 (134-434); RBC 3.44 M/mm3 (3.60-5.2); RDW 13.7 % (11.6-15.6)
[2019-09-19] MEDS ORDERED: OXYTOCIN 20 UNITS in 0.9% NS 20 UNIT/1,000 ML INFUS.BAG IV ONE (09:19)
[2019-09-19] MEDS: PRENATAL VITAMINS W/ FOLIC ACID TABLET (FP) PO SCH (10:05)
[2019-09-19 11:06] LABS: COCAINE, UR NEGATIVE ng/ml (CUTOFF=300); METHADONE, UR NEGATIVE ng/ml (CUTOFF=300); OPIATES, URI NEGATIVE ng/ml (CUTOFF=300); PHENCYCLIDINE,URINE NEGATIVE ng/ml (CUTOFF=25); URINE AMPHETAMINES NEGATIVE ng/ml (CUTOFF=500); URINE BARBITURATES NEGATIVE ng/ml (CUTOFF=200); URINE BENZODIAZEPINES NEGATIVE ng/ml (CUTOFF=200)
[2019-09-19] MEDS ORDERED: SENNOSIDES/DOCUSATE COMBO (SENNA PLUS) TABLET (UD) PO PRN (22:00)
[2019-09-19] MEDS: INSULIN SLIDING SCALE (NOVOLOG) 1 VIAL SQ SCH (22:29)
--- NOTE | 2019-09-19 22:54 | CONSULT ---
Consult Consult Specialty:: Endocrine Referred by:: Juli Silva MD Reason for Consultation:: diabetes mellitus Type 2 - History of Present Illness History of Present Illness: 43 y female,with type II Diabetes (HgbA1c 10.9 at NOB visit, last HbgA1c 9.0 in February 2019) NO care (dismissed from [address] [place] [address] 08/25 profound non compliance with her type II diabetes management). 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's, CVA, Dementia, Migraine, Multiple Sclerosis, Peripheral Neuropathy, Parkinson's, Seizure, Syncope, TIA, Vertigo, Other Cardio/Vascular: No: AFIB, Aneurysm, Aortic Insufficiency, Aortic Stenosis, CAD , CHF, Deep Vein Thrombosis, HTN, Hyperlipdemia, [place], Mitral Insufficiency, Mitral Stenosis, Murmur, Pulmonary Hypertension, Other Pulmonary: No: Asthma, Bronchitis, Cancer, COPD, O2 Dependent, Pneumonia, Previously Intubated, Pulmonary Embolus, Pulmonary Fibrosis, Sleep Apnea, Other Gastrointestinal: No: Ascites, Cancer, Constipation, Crohn's Disease, Diverticulitis, Diverticulosis, Esophageal Varices, Gastritis, GERD, GI Bleed, Hemorrhoids, Hiatal Hernia, Inflamatory Bowel Disease, Irritable Bowel Disease, Pancreatitis, Peptic Ulcer Disease, Ulcerative Colitis, Other Hepatobiliary: No: Cirrhosis, Cholelithiasis, Cholecystitis, Choledocholithiasis , Hepatitis A, Hepatitis B, Hepatitis C, Other Renal/: No: Renal Failure, Renal Inusuff, BPH, Cancer, Hematuria, Hemodialysis , Neurogenic Bladder, Renal Calculi, UTI, Other ...LMP: 05/27/17 Infectious Disease: No: AIDS, C-Diff, Herpes Zoster, HIV, MRSA, STD's, Tuberculosis, VREF, Other Psych: No: Addictions, Anxiety, Bipolar, Depression, Panic, Psychosis, Schizophrenia, Other Musculoskeletal: No: Bursitis, Chronic low back pain, Hemiparesis, Hemiplegia, Osteoarthritis, Paraplegia, Other Rheumatology: No: Fibromyalgia, Gout, Lupus, Rheumatoid Arthritis, Sarcoidosis, Vasculitis, Other ENT: No: Allergic Rhinitis, Sinusitis, Other Endocrine: Yes: Diabetes Mellitus - Past Surgical History Past Surgical History: Yes: None - Alcohol/Substance Use Hx Alcohol Use: No History of Substance Use: reports: None - Smoking History Smoking history: Never smoked Have you smoked in the past 12 months: No - Social History ADL: Independent History of Recent Travel: No Home Medications - Allergies Allergies/Adverse Reactions: Allergies Allergy/AdvReac Type Severity Reaction Status Date / Time No Known Allergies Allergy Verified 09/16/17 12:59 - Home Medications Home Medications: Ambulatory Orders Ferrous Sulfate [Iron] 325 mg PO DAILY 09/16/17 Ibuprofen 600 mg PO Q6H PRN #30 tablet 09/18/19 Review of Systems - Review of Systems Constitutional: reports: No Symptoms Eyes: reports: No Symptoms HENT: reports: No Symptoms Neck: reports: No Symptoms Cardiovascular: reports: No Symptoms Respiratory: reports: No Symptoms Gastrointestinal: reports: No Symptoms Genitourinary: reports: No Symptoms Musculoskeletal: reports: No Symptoms Integumentary: reports: No Symptoms Endocrine: reports: No Symptoms Hematology/Lymphatic: reports: No Symptoms Physical Exam Vital Signs: Vital Signs Temperature 97.6 F 09/19/19 22:17 Pulse Rate 70 09/19/19 22:17 Respiratory Rate 20 09/19/19 22:17 Blood Pressure 138/84 09/19/19 22:17 O2 Sat by Pulse Oximetry (%) 99 09/19/19 00:00 Constitutional: Yes: Calm Eyes: Yes: EOM Intact HENT: Yes: Normocephalic Neck: Yes: Trachea Midline Cardiovascular: Yes: Regular Rate and Rhythm Respiratory: Yes: CTA Bilaterally Gastrointestinal: Yes: Normal Bowel Sounds Renal/: Yes: WNL Musculoskeletal: Yes: WNL Extremities: Yes: WNL Edema: No Neurological: Yes: Alert, Oriented Labs: CBC, BMP 09/19/19 07:00 09/18/19 18:45 Problem List - Problems (1) 39 weeks gestation of Problems reviewed: Yes Code(s): Z3A.39 - 39 WEEKS GESTATION OF (2) Type II diabetes mellitus Problems reviewed: Yes Code(s): E11.9 - TYPE 2 DIABETES MELLITUS WITHOUT COMPLICATIONS Assessment/Plan Current Active Problems 39 weeks gestation of (Acute) Type II diabetes mellitus (Acute) Abnormal Lab Results 09/18/19 09/18/19 09/19/19 05:00 18:45 07:00 RBC 3.44 L Hct 32.2 L Absolute Neuts (auto) 8.1 H Hemoglobin A1c % 8.0 H U Random Total Protein 172.0 H Urine Creatinine 227.0 H Laboratory Results - last 24 hr 09/18/19 09/18/19 09/18/19 05:00 05:00 18:45 WBC RBC Hgb Hct MCV MCH MCHC RDW Plt Count MPV Absolute Neuts (auto) Neutrophils % Lymphocytes % Monocytes % Eosinophils % Basophils % Nucleated RBC % POC Glucometer Hemoglobin A1c % LD Total U Random Total Protein 172.0 H Urine Creatinine 227.0 H Protein/Creatinin Ratio 0.8 Opiates Screen Negative Methadone Screen Negative Barbiturate Screen Negative Phencyclidine Screen Negative Ur Amphetamines Screen Negative MDMA (Ecstasy) Screen Negative Benzodiazepines Screen Negative Cocaine Screen Negative U Marijuana (THC) Screen Negative RPR Titer Nonreactive 09/18/19 09/18/19 09/19/19 18:45 18:45 06:13 WBC RBC Hgb Hct MCV MCH MCHC RDW Plt Count MPV Absolute Neuts (auto) Neutrophils % Lymphocytes % Monocytes % Eosinophils % Basophils % Nucleated RBC % POC Glucometer 163 Hemoglobin A1c % 8.0 H LD Total 176 U Random Total Protein Urine Creatinine Protein/Creatinin Ratio Opiates Screen Methadone Screen Barbiturate Screen Phencyclidine Screen Ur Amphetamines Screen MDMA (Ecstasy) Screen Benzodiazepines Screen Cocaine Screen U Marijuana (THC) Screen RPR Titer 09/19/19 09/19/19 09/19/19 07:00 11:49 17:09 WBC 10.0 RBC 3.44 L Hgb 11.1 Hct 32.2 L MCV 93.7 MCH 32.3 MCHC 34.5 RDW 13.7 Plt Count 148 MPV 8.8 Absolute Neuts (auto) 8.1 H Neutrophils % 81.2 Lymphocytes % 11.3 D Monocytes % 7.1 Eosinophils % 0.0 D Basophils % 0.4 Nucleated RBC % 0 POC Glucometer 154 216 Hemoglobin A1c % LD Total U Random Total Protein Urine Creatinine Protein/Creatinin Ratio Opiates Screen Methadone Screen Barbiturate Screen Phencyclidine Screen Ur Amphetamines Screen MDMA (Ecstasy) Screen Benzodiazepines Screen Cocaine Screen U Marijuana (THC) Screen RPR Titer plan:bgm achs novolog scale diet and follow up for control correction goal nutrition consultation
--- NOTE | 2019-09-20 06:52 | DS ---
Physical Exam-IUSS ANALYST Vital Signs: Vital Signs Temperature 97.9 F 09/20/19 06:00 Pulse Rate 72 09/20/19 06:00 Respiratory Rate 20 09/20/19 06:00 Blood Pressure 144/80 09/20/19 06:00 O2 Sat by Pulse Oximetry (%) 99 09/19/19 00:00 Constitutional: Yes: Well Nourished, No Distress, Calm Eyes: Yes: WNL, Conjunctiva Clear, EOM Intact HENT: Yes: WNL Neck: Yes: WNL Cardiovascular: Yes: WNL Respiratory: Yes: WNL Gastrointestinal: Yes: WNL ...Rectal Exam: Yes: WNL Renal/: Yes: WNL Internal Exam Deferred: Yes ....Post : Yes: Uterus firm, Uterus non-tender, Slight lochia rubra Breast(s): Yes: WNL Musculoskeletal: Yes: WNL Extremities: Yes: WNL Edema: Yes Edema: LLE: Trace, RLE: Trace Integumentary: Yes: WNL Neurological: Yes: WNL, Alert, Oriented ...Motor Strength: WNL Psychiatric: Yes: WNL, Alert, Oriented Labs: CBC, BMP 09/19/19 07:00 09/18/19 18:45 Delivery - Delivery Vaginal Delivery: Shoulder/Difficult Type of Anesthesia: Local Episiotomy/Laceration: Right Mediolateral EBL (cc): 250 Delivery, Single - Stages of Labor Date 1st Stage Initiatied: 09/18/19 Time 1st Stage Initiated: 13:00 Date 2nd Stage Initiated: 09/18/19 Time 2nd Stage Initiated: 20:55 Date of Delivery: 09/18/19 Time of Delivery: 21:21 Time Placenta Delivered: 21:24 Placenta: Yes: Spontaneous - Condition of Upsetter/Wardrobe Attendant Present: Yes Name: Lily Cho Gender: Female Weight: 7 lb 8 oz Position: Left, OA Total Hours ROM (Hrs/Mins): 29 minutes - 1 Minute Total Score: 7 5 Minutes Total Score: 9 - Morrison Feeding Plan Initial Plan: Exclusive throughout hospitalization Discharge Summary Problems reviewed: Yes Reason For Visit: LABOR Current Active Problems 39 weeks gestation of (Acute) Type II diabetes mellitus (Acute) Procedures: Principal: Hospital Course: had shoulder dystocia during delivery HX of type 2 DM , had consult with [facility] Health Concerns: obesity, DM Plan of Treatment: follow up with Dr Sidhu for diabetic follow up, low carb diet , exercise , followup HR 3 weeks, for PP visit Condition: Stable - Instructions Diet, Activity, Other Instructions: Diabetic Diet Follow up in one week for a blood pressure check Referrals: Dorothy Silva MD [Staff Physician] - Disposition: HOME - Home Medications Comprehensive Discharge Medication List: Ambulatory Orders Ferrous Sulfate [Iron] 325 mg PO DAILY 09/16/17 Ibuprofen 600 mg PO Q6H PRN #30 tablet 09/18/19
[2019-09-20] MEDS: INSULIN SLIDING SCALE (NOVOLOG) 1 VIAL SQ SCH ×2 (08:38→11:49)
[2019-09-20] MEDS: LABETALOL HCL 200 MG TABLET (FP) PO SCH ×2 (08:41→10:30)
[2019-09-20] MEDS: PRENATAL VITAMINS W/ FOLIC ACID TABLET (FP) PO SCH (10:43)
--- NOTE | 2019-09-20 14:18 | PN ---
Progress Note, Physician Chief Complaint: comfortable no complaint am sugar 86 - Current Medication List Current Medications: Active Medications Acetaminophen (Tylenol -) 650 mg PO Q3H PRN PRN Reason: PAIN Last Admin: 09/20/19 08:40 Dose: 650 mg Benzocaine (Americaine 20% Ellis -) 1 spray TP PRN PRN PRN Reason: PAIN Last Admin: 09/19/19 07:41 Dose: 1 spray Benzocaine (Americaine Ointment -) 1 applic TP PRN PRN PRN Reason: PAIN Bisacodyl (Dulcolax Suppository -) 10 mg RC PRN PRN PRN Reason: CONSTIPATION Ibuprofen (Motrin -) 600 mg PO Q4H PRN PRN Reason: PAIN Last Admin: 09/20/19 08:40 Dose: 600 mg Insulin Aspart (Novolog Vial Sliding Scale -) 1 vial SQ [facility]; Protocol Last Admin: 09/20/19 11:49 Dose: Not Given Labetalol HCl (Normodyne -) 200 mg PO BID [facility] Last Admin: 09/20/19 10:30 Dose: Not Given Methylergonovine Maleate (Methergine Injection -) 0.2 mg IM Q4H PRN PRN Reason: EXCESSIVE BLEEDING (L&D) Multivit/Folic Acid/Iron ( Vitamins (Sjr) -) 1 tab PO DAILY [facility] Last Admin: 09/20/19 10:43 Dose: 1 tab Senna/Docusate Sodium (Pericolace -) 2 tablet PO HS PRN PRN Reason: CONSTIPATION Witch Karin/Glycerin (Tucks Pads -) 1 pad TP PRN PRN PRN Reason: PAIN - Objective Vital Signs: Vital Signs Temperature 97.9 F 09/20/19 06:00 Pulse Rate 72 09/20/19 06:00 Respiratory Rate 20 09/20/19 06:00 Blood Pressure 144/80 09/20/19 06:00 O2 Sat by Pulse Oximetry (%) 99 09/19/19 00:00 Constitutional: Yes: Calm Eyes: Yes: EOM Intact HENT: Yes: Normocephalic Neck: Yes: Trachea Midline Cardiovascular: Yes: Regular Rate and Rhythm Respiratory: Yes: CTA Bilaterally Gastrointestinal: Yes: Normal Bowel Sounds ...Rectal Exam: Yes: Deferred Genitourinary: Yes: WNL Musculoskeletal: Yes: WNL Extremities: Yes: WNL Neurological: Yes: Alert Labs: CBC, BMP 09/19/19 07:00 09/18/19 18:45 INR, PTT INR 0.91 (0.83-1.09) 09/18/19 18:45 Problem List - Problems (1) 39 weeks gestation of Code(s): Z3A.39 - 39 WEEKS GESTATION OF (2) Type II diabetes mellitus Code(s): E11.9 - TYPE 2 DIABETES MELLITUS WITHOUT COMPLICATIONS Assessment/Plan Current Active Problems 39 weeks gestation of (Acute) Type II diabetes mellitus (Acute) Laboratory Results - last 24 hr 09/19/19 09/19/19 09/20/19 17:09 22:20 06:53 POC Glucometer 216 179 86 09/20/19 11:43 POC Glucometer 138 plan: discharge home follow up [facility] dm t2 will need bgm and testing ac meals
[2019-09-20 16:42] VITALS: PULSE 69; TEMP 97.7
[2019-09-20 16:44] VITALS: BP 159/86
[2019-09-22 01:13] LABS: OXYCODONE BLOOD Negative ng/mL (Cutoff:5); PCP BLOOD Negative ng/mL (Cutoff:8)
== END 2019-09-20 16:00 | disposition home or self-care (01) | DRG 560 ==
LOC: JLDR 16:45 → J3W 09-19 13:36
PROVIDERS: ADMIT Obstetrics & Gynecology; ATTEND Obstetrics & Gynecology
PROC: 10E0XZZ Delivery of Products of Conception, External Approach (ICD-10-PCS; principal; 2019-09-18)
PROC: 0W8NXZZ Division of Female Perineum, External Approach (ICD-10-PCS; 2019-09-18)
DX: O24.429 Gestational diabetes mellitus in childbirth, unspecified control (principal); O66.9 Obstructed labor, unspecified; Z3A.39 39 weeks gestation of pregnancy; Z37.0 Single live birth
CPT/HCPCS: 36415; 36600; 59409; 80048; 80053; 80307; 82570; 82803; 82962; 83036; 83615; 84156; 84450; 84460; 84550; 85025; 85610; 85730; 86593; 86850; 86900; 86901; 87389